=== PATIENT | female | born 1955 | race Caucasian/White ===

== ENCOUNTER 2016-09-17 07:01 | Day surgery (SDC) | payer OTHER ==
[~2016-09-17] VITALS: Ht 162.6 cm; Wt 72.0 kg
[2016-09-17] VITALS (11 sets, daily range): BP systolic 97–136; BP diastolic 57–70; PULSE 72–78; RESP 11–18; Ht 162.6 cm; Wt 72.0 kg
[~2016-09-17 07:01] MED LIST: CLARITIN D; HYDROCHLOROTHIAZIDE; NAPROXEN; OMEPRAZOLE; SIMV20TA2 PO
[2016-09-17] MEDS ORDERED: MAXZ25 PO (08:27)
[2016-09-17] MEDS ORDERED: RANI300T PO (08:27)
[2016-09-17] MEDS ORDERED: METF500T4 PO (08:28)
[2016-09-17] MEDS ORDERED: NORT25CA PO (08:28)
[2016-09-17] MEDS ORDERED: SOD CHLORIDE 0.9% 1,000 ML IV SCH (08:30)
[2016-09-17] MEDS ORDERED: CLINDAMYCIN 600 MG/D5W (PMX) 50 ML IVPB ONE ×2 (08:30→10:32)
[2016-09-17 08:45] LABS: ADD SCAN DIFF NO
--- NOTE | 2016-09-17 08:57 | RADRPT ---
PROCEDURE: XR Chest. CLINICAL INDICATION: RT SHOULDER MASS EXCISION TECHNIQUE: Single frontal view of the chest was obtained COMPARISON: None FINDINGS: The cardiomediastinal silhouette is within normal limits. There are faint atherosclerotic calcifications of the thoracic aorta. No pneumothorax, significant pleural effusion, or parenchymal consolidation is identified. There is no evidence of significant pulmonary vascular congestion. There are degenerative changes of the visualized spine. A surgical screw projects over the right hu meral head, possible related to prior rotator cuff surgery. IMPRESSION: 1. No evidence of acute cardiopulmonary process. 2. Surgical screw projecting over the right humeral head, likely related to prior rotator cuff surge ry. RPTAT: PP Physician Jennifer Date Time Electronically viewed and signed by Physician Jennifer on 09/17/2016 08:56 /
[2016-09-17] MEDS ORDERED: DIPHENHYDRAMINE 50 MG INJ IV PRN (09:00)
[2016-09-17] MEDS ORDERED: INSULIN ASPART [NOVOLOG] 3 ML PEN SC ONE (09:00)
[2016-09-17] MEDS ORDERED: ONDANSETRON 4 MG INJ IV PRN (09:00)
[2016-09-17] MEDS ORDERED: HYDROmorphONE (0.2 MG/ML) 10ML SYG IV PRN ×2 (09:00)
[2016-09-17] MEDS ORDERED: MEPERIDINE 25 MG INJ IV PRN (09:00)
[2016-09-17] MEDS ORDERED: PROCHLORPERAZINE 10 MG INJ IV PRN (09:00)
[2016-09-17] MEDS ORDERED: OXYCODONE/ACETAMINOPHEN (5/325) TAB PO PRN ×2 (09:00)
[2016-09-17] MEDS ORDERED: FENTAnyl 50 MCG/ML VIAL IV PRN (09:00)
[2016-09-17 09:02] LABS: BASOPHILS % 0.7 % (0.0-2.0); EOSINOPHILS # 0.1 10^3/ul (0.0-0.5); EOSINOPHILS % 2.2 % (0.0-7.0); HEMATOCRIT 36.5 % (37.0-47.0); HEMOGLOBIN 11.9 g/dl (12.0-16.0); LYMPHOCYTES # 1.6 10^3/ul (0.8-2.9); LYMPHOCYTES % 38.5 % (15.0-51.0); MEAN CORPUSCULAR HGB CONC 32.6 g/dl (32.0-37.0); MEAN PLATELET VOLUME 9.3 fl (7.4-10.4); MONOCYTE # 0.5 10^3/ul (0.3-0.9); MONOCYTES % 12.4 % (0.0-11.0); NEUTROPHIL # 1.9 10^3/ul (1.6-7.5); PLATELET COUNT 242 10^3/UL (140-415); RED CELL DISTRIBUTION WIDTH 12.1 % (11.5-14.5); WHITE BLOOD COUNT 4.2 10^3/ul (4.8-10.8)
[2016-09-17 09:05] LABS: INR 0.93; PROTIME 12.5 Sec (12.2-14.2)
[2016-09-17 09:06] LABS: PARTIAL THROMBOPLASTIN TIME 31.5 Sec (25.0-35.0)
[2016-09-17 09:13] LABS: ALBUMIN 4.1 g/dl (3.3-4.9); ALBUMIN/GLOBULIN RATIO 1.28; BILIRUBIN,INDIRECT 0.9 mg/dl (0-1.1); BILIRUBIN,TOTAL 0.9 mg/dl (0.2-1.3); TOTAL PROTEIN 7.3 g/dl (6.1-8.1)
[2016-09-17 09:17] LABS: CALCIUM 9.6 mg/dl (8.4-10.2); CREATININE 0.77 mg/dl (0.44-1.00)
[2016-09-17] MEDS ORDERED: MIDAZOLAM 1 MG/ML 2 ML INJ ONE (09:38)
[2016-09-17] MEDS ORDERED: PROPOFOL 20 ML ONE (09:38)
[2016-09-17] MEDS ORDERED: LIDOCAINE 2% (SDV) 5 ML INJ ONE (09:38)
[2016-09-17] MEDS ORDERED: FENTAnyl 50 MCG/ML VIAL ONE (09:38)
[2016-09-17] MEDS ORDERED: LIDOCAINE 2% (MDV) 20 ML INJ ONE (10:25)
[2016-09-17] MEDS ORDERED: BUPIVACAINE 0.5% (SDV) 30 ML INJ ONE (10:25)
[2016-09-17] MEDS ORDERED: METOCLOPRAMIDE 10 MG INJ ONE (10:37)
[2016-09-17] MEDS ORDERED: ONDANSETRON 4 MG INJ ONE (10:37)
--- NOTE | 2016-09-17 10:51 | OPR ---
Date/Time of Note Date/Time of Note DATE: 09/17/16 TIME: 10:48 Operative Report Procedure Date: Sep 17, 2016 Preoperative Diagnosis right shoulder mass Postoperative Diagnosis same Operation Performed 1. excision of right shoulder mass 3 cm mass 4 cm incision 2. localized adjacent tissue transfer with the use of skin flaps 8 sq cm defect 3. therapeutic injection of subcutaneous local anesthesia cpt code 68841 Surgeon: Ondina GATES Specimens right shoulder mass Indications This is a 61-year-old female with a right shoulder painful mass. She required surgical excision. Procedure Description Patient is taken to the OR and prepped and draped in usual sterile fashion. Surgical timeout is performed IV antibiotics are given. Local anesthesia was infiltrated above the anterior right shoulder mass. Transverse incision is made with a 15 blade. Dissection cautery was carried down to the mass. The mass was circumferentially excised using cautery. There is good hemostasis. Due to the tissue defect localized adjacent tissue transfer with these of skin flaps was performed. Multilayer closure of interrupted 3-0 Vicryl and skin brigette. Dry dressings were applied. Ondina GATES Sep 17, 2016 10:50
[2016-09-17] MEDS ORDERED: ACETAMINOPHEN/CODEINE #3 TAB PO ONE (11:00)
--- NOTE | 2016-09-17 19:07 | RADRPT ---
Vent Rate: 75 bpm RR Interval: 0 msec TN Interval: 192 msec QRS Duration: 92 msec QT Interval: 404 msec QTC Interval: 451 msec P-R-T [place]: 57 - 2 - 50 degrees Normal sinus rhythm Normal ECG Electronically Signed By: Adan Jerry [id number]
== END 2016-09-17 12:52 | disposition home or self-care (01) ==
LOC: SDS 07:01
PROVIDERS: ATTEND Surgery
DX: D17.21 Benign lipomatous neoplasm of skin and subcutaneous tissue of right arm (principal); I10 Essential (primary) hypertension; E11.9 Type 2 diabetes mellitus without complications; E78.5 Hyperlipidemia, unspecified
CPT/HCPCS: 14020; 71010; 80053; 82962; 85025; 85610; 85730; 88307; 93005; J2250; J2405; J2765; J3010; Z7512; Z7610; J1815

== ENCOUNTER 2018-02-17 15:38 | Emergency (ER) | END 2018-02-17 17:52 | disposition home or self-care (01) ==